=== PATIENT | male | born 1960 | race Caucasian/White ===

== ENCOUNTER 2017-01-12 18:02 | Inpatient (IN) | payer MEDICARE, OTHER ==
[~2017-01-12] VITALS: Ht 185.4 cm; Wt 91.3 kg
[~2017-01-12 18:02] MED LIST: BACLOFEN IT; CLONIDINE IT; GABA100C PO; OXYC10TA6 PO; OXYC40TA27 PO; [UNRECOGNIZED DRUG - CODE] SC
[2017-01-12] MEDS ORDERED: SODIUM CHLORIDE 0.9% 1,000 ML IV ONE (18:09)
[2017-01-12] MEDS ORDERED: SODIUM CHLORIDE 0.9% 1,000ML IVBOLUS ONE ×2 (18:30→21:00)
[2017-01-12] MEDS ORDERED: PIPERACILLIN/TAZO/PMX 3.375GM 50 ML IVPB ONE (18:30)
[2017-01-12] MEDS ORDERED: VANCOMYCIN PER PHARMACY IV ONE (18:30)
[2017-01-12 18:33] LABS: HEMATOCRIT 51.9 % (39.2-51.8); HEMOGLOBIN 17.2 g/dL (13.7-18.0); WHITE BLOOD COUNT 8.9 x10^3/uL (3.4-10)
[2017-01-12] MEDS ORDERED: PIPERACILLIN/TAZO/PMX 3.375GM 50 ML ONE (18:35)
[2017-01-12] MEDS ORDERED: ACETAMINOPHEN 500 MG TABLET ONE ×2 (18:37→18:46)
[2017-01-12 18:46] LABS: BLOOD UREA NITROGEN 9 mg/dL (7-18)
[2017-01-12 18:51] LABS: ASPARTATE AMINO TRANSFERASE 27 U/L (15-37)
[2017-01-12 18:54] LABS: IS PT STATUS REG ER OR PRE ER? YES
[2017-01-12] MEDS ORDERED: ACETAMINOPHEN 500 MG TABLET PO ONE (19:00)
[2017-01-12] MEDS ORDERED: VANCOMYCIN 1,900 MG in SODIUM CHLORIDE 0.9% 250 ML IV ONE (19:00)
[2017-01-12] MEDS ORDERED: DIAZ5TAB4 PO (19:36)
[2017-01-12] MEDS ORDERED: PRED5TAB PO (19:36)
[2017-01-12] MEDS ORDERED: OXYC60TA8 PO (19:36)
[2017-01-12] MEDS ORDERED: LEVO88TA2 PO (19:36)
[2017-01-12 20:29] LABS: PATH.CAST-FLAG NOT PRESENT; SPERM-FLAG NOT PRESENT; SRC-FLAG NOT PRESENT; XTAL-FLAG NOT PRESENT; YLC-FLAG NOT PRESENT
[2017-01-12 20:35] LABS: ABG COLLECTION SITE RIGHT RADIAL; COLLATERAL CIRCULATION TESTING NORMAL
[2017-01-12] MEDS: SODIUM CHLORIDE 0.9% 1,000 ML IV SCH (22:08)
[2017-01-12] MEDS ORDERED: ONDANSETRON 2MG/ML, 2ML IVPush PRN (22:30)
[2017-01-12] MEDS ORDERED: ACETAMINOPHEN 325 MG TABLET PO PRN (22:30)
[2017-01-12] MEDS ORDERED: BISACODYL 10 MG SUPP PR PRN (22:30)
[2017-01-12] MEDS ORDERED: VANCOMYCIN PER PHARMACY MC PRN (22:30)
[2017-01-12] MEDS ORDERED: POLYETHYLENE GLYCOL 17 GM PACKET PO PRN (22:30)
[2017-01-12 22:54] LABS: ABG COLLECTION SITE LEFT RADIAL; COLLATERAL CIRCULATION TESTING NORMAL
[2017-01-13] MEDS ORDERED: PHARMACOKINETIC MONITORING MC PRN (00:30)
[2017-01-13] MEDS: HEPARIN 5,000 UNITS/ML, 1ML SQ SCH ×3 (00:50→16:48)
[2017-01-13] MEDS: FAMOTIDINE 20 MG/2 ML IVPush SCH ×3 (00:50→19:57)
[2017-01-13] MEDS ORDERED: PIPERACILLIN/TAZO 3.375 GM in SODIUM CHLORIDE 0.9% 50 ML IV SCH (01:00)
[2017-01-13] MEDS ORDERED: PIPERACILLIN/TAZO/PMX 3.375GM 50 ML IV SCH (01:00)
[2017-01-13 01:10] VITALS: BP 96/67
[2017-01-13 01:14] VITALS: BP 129/86
[2017-01-13] MEDS ORDERED: ALBUTEROL/IPRATROPIUM 2.5MG/0.5MG, 3 ML NPPB PRN (02:00)
[2017-01-13 03:22] LABS: RAPID INFLUENZA A Negative (Negative); RAPID INFLUENZA B Negative (Negative)
[2017-01-13 04:49] LABS: ABG COLLECTION SITE LEFT RADIAL; COLLATERAL CIRCULATION TESTING NORMAL
[2017-01-13] MEDS: KETOROLAC 30 MG/1 ML IVPush PRN (04:53)
[2017-01-13 04:54] LABS: HEMATOCRIT 41.1 % (39.2-51.8); HEMOGLOBIN 13.8 g/dL (13.7-18.0); WHITE BLOOD COUNT 9.5 x10^3/uL (3.4-10)
[2017-01-13 05:02] LABS: BLOOD UREA NITROGEN 6 mg/dL (7-18)
[2017-01-13 05:05] LABS: ASPARTATE AMINO TRANSFERASE 17 U/L (15-37)
[2017-01-13] MEDS ORDERED: OxyconTIN ER 40 MG TAB.ER PO SCH (05:30)
[2017-01-13] MEDS: OXYcodone ORAL.CONC 20 MG/ML PO PRN ×2 (05:45→12:04)
[2017-01-13] MEDS: LEVOTHYROXINE 88 MCG TABLET PO SCH (07:05)
[2017-01-13] MEDS: PIPERACILLIN/TAZO 3.375 GM in SODIUM CHLORIDE 0.9% 50 ML IVPB SCH ×3 (07:05→19:58)
[2017-01-13] MEDS: PREGABALIN 150 MG CAPSULE PO SCH ×4 (07:05→19:57)
[2017-01-13] MEDS ORDERED: OxyconTIN ER 20 MG TAB.ER ONE (08:08)
[2017-01-13] MEDS: LIDOCAINE GEL 2%, 5ML TP PRN (08:22)
[2017-01-13] MEDS: SENNA/DOCUSATE TABLET PO SCH (08:22)
[2017-01-13] MEDS: OxyconTIN ER 20 MG TAB.ER PO SCH ×2 (08:46→20:47)
[2017-01-13] MEDS ORDERED: VANCOMYCIN 1,800 MG in SODIUM CHLORIDE 0.9% 250 ML IV SCH (10:00)
[2017-01-13] MEDS: SODIUM CHLORIDE 0.9% 1,000 ML IV SCH (14:00)
[2017-01-13] MEDS: VANCOMYCIN 1,800 MG in SODIUM CHLORIDE 0.9% 250 ML IV SCH (16:49)
[2017-01-13 17:59] VITALS: BP 123/84
[2017-01-13] MEDS: OXYcodone IR 5MG TABLET PO PRN (18:25)
[2017-01-13] MEDS ORDERED: OXYcodone IR 5MG TABLET PO PRN ×2 (18:30→23:30)
[2017-01-13 19:03] VITALS: BP 127/82
[2017-01-14] MEDS: HEPARIN 5,000 UNITS/ML, 1ML SQ SCH ×3 (00:21→15:43)
[2017-01-14] MEDS: OXYcodone IR 5MG TABLET PO PRN ×4 (00:22→14:03)
[2017-01-14 00:36] VITALS: BP 116/79
[2017-01-14] MEDS: PIPERACILLIN/TAZO 3.375 GM in SODIUM CHLORIDE 0.9% 50 ML IVPB SCH ×4 (01:00→20:16)
[2017-01-14] MEDS: LEVOTHYROXINE 88 MCG TABLET PO SCH (04:57)
[2017-01-14] MEDS: LIDOCAINE GEL 2%, 5ML TP PRN ×2 (04:58→12:48)
[2017-01-14] MEDS: KETOROLAC 30 MG/1 ML IVPush PRN (04:58)
[2017-01-14] MEDS: PREGABALIN 150 MG CAPSULE PO SCH ×4 (05:07→21:17)
[2017-01-14 06:55] VITALS: BP 150/95
[2017-01-14] MEDS: FAMOTIDINE 20 MG/2 ML IVPush SCH ×3 (08:56→21:17)
[2017-01-14] MEDS: SENNA/DOCUSATE TABLET PO SCH (08:56)
[2017-01-14] MEDS: OxyconTIN ER 20 MG TAB.ER PO SCH ×4 (09:00→21:36)
[2017-01-14] MEDS: VANCOMYCIN 1,800 MG in SODIUM CHLORIDE 0.9% 250 ML IV SCH (10:21)
[2017-01-14] MEDS ORDERED: OXYcodone IR 5MG TABLET PO PRN (12:30)
[2017-01-14 12:40] VITALS: BP 151/99
[2017-01-14] MEDS: DIAZEPAM ELIXIR 1 MG/ML PO PRN (17:58)
[2017-01-14 19:58] VITALS: BP 142/92
[2017-01-14 20:01] VITALS: BP 142/92
[2017-01-15] MEDS: HEPARIN 5,000 UNITS/ML, 1ML SQ SCH ×3 (00:38→16:03)
[2017-01-15] MEDS: OXYcodone IR 5MG TABLET PO PRN ×5 (00:38→23:05)
[2017-01-15] MEDS: PIPERACILLIN/TAZO 3.375 GM in SODIUM CHLORIDE 0.9% 50 ML IVPB SCH ×2 (00:38→09:13)
[2017-01-15] MEDS: LIDOCAINE GEL 2%, 5ML TP PRN ×3 (02:37→23:02)
[2017-01-15] MEDS ORDERED: OxyconTIN ER 10 MG TAB.ER ONE ×3 (03:56→10:55)
[2017-01-15] MEDS: OxyconTIN ER 20 MG TAB.ER PO SCH ×6 (04:03→22:00)
[2017-01-15] MEDS: LEVOTHYROXINE 88 MCG TABLET PO SCH (06:00)
[2017-01-15] MEDS: PREGABALIN 150 MG CAPSULE PO SCH ×4 (06:05→21:21)
[2017-01-15 06:36] VITALS: BP 152/95
[2017-01-15 06:37] VITALS: BP 152/95
[2017-01-15] MEDS: SENNA/DOCUSATE TABLET PO SCH (09:00)
[2017-01-15] MEDS: FAMOTIDINE 20 MG/2 ML IVPush SCH ×2 (09:14→21:21)
[2017-01-15] MEDS ORDERED: OxyconTIN ER 40 MG TAB.ER ONE (10:56)
[2017-01-15 13:11] VITALS: BP 137/87
[2017-01-15 19:03] VITALS: BP 161/90
[2017-01-15] MEDS: CEFDINIR 300 MG CAPSULE PO SCH (21:21)
[2017-01-15] MEDS: DOXYCYCLINE 100MG TABLET PO SCH (21:21)
[2017-01-15] MEDS: DIAZEPAM ELIXIR 1 MG/ML PO PRN (23:06)
[2017-01-16 00:16] VITALS: BP 155/96
[2017-01-16] MEDS: HEPARIN 5,000 UNITS/ML, 1ML SQ SCH ×2 (00:20→08:00)
[2017-01-16] MEDS ORDERED: OxyconTIN ER 10 MG TAB.ER ONE (04:01)
[2017-01-16] MEDS: OxyconTIN ER 20 MG TAB.ER PO SCH ×3 (04:04→10:03)
[2017-01-16] MEDS: PREGABALIN 150 MG CAPSULE PO SCH ×2 (05:25→11:00)
[2017-01-16] MEDS: LEVOTHYROXINE 88 MCG TABLET PO SCH (05:26)
[2017-01-16] MEDS: OXYcodone IR 5MG TABLET PO PRN (05:26)
[2017-01-16 05:30] LABS: HEMATOCRIT 47.3 % (39.2-51.8); HEMOGLOBIN 15.8 g/dL (13.7-18.0); WHITE BLOOD COUNT 4.8 x10^3/uL (3.4-10)
[2017-01-16 05:40] LABS: BLOOD UREA NITROGEN 5 mg/dL (7-18)
[2017-01-16 07:15] VITALS: BP 146/89
[2017-01-16] MEDS: SENNA/DOCUSATE TABLET PO SCH (09:00)
[2017-01-16] MEDS: FAMOTIDINE 20 MG/2 ML IVPush SCH (09:00)
[2017-01-16] MEDS ORDERED: DOXY100T PO (09:39)
[2017-01-16] MEDS ORDERED: CEFD300C37 PO (09:39)
[2017-01-16] MEDS: CEFDINIR 300 MG CAPSULE PO SCH (10:03)
[2017-01-16] MEDS: DOXYCYCLINE 100MG TABLET PO SCH (10:03)
[2017-01-16] MEDS ORDERED: PNEUMOCOCCAL 23 VACCINE IM-VACC ONE (10:30)
== END 2017-01-16 13:45 | disposition home or self-care (01) | DRG 871 ==
LOC: ED 20:57 → EDIP 22:37 → CCU 01-13 00:15 → 4EST 01-13 17:50
PROVIDERS: ADMIT Hospitalist; ATTEND Hospitalist
PROC: 0T9B70Z Drainage of Bladder with Drainage Device, Via Natural or Artificial Opening (ICD-10-PCS; principal; 2017-01-12)
DX: A41.9 Sepsis, unspecified organism (principal); J15.9 Unspecified bacterial pneumonia; J96.01 Acute respiratory failure with hypoxia; J96.02 Acute respiratory failure with hypercapnia; D89.9 Disorder involving the immune mechanism, unspecified; F11.20 Opioid dependence, uncomplicated; G35 Multiple sclerosis; J44.0 Chronic obstructive pulmonary disease with (acute) lower respiratory infection; G89.29 Other chronic pain; R65.20 Severe sepsis without septic shock; Z87.891 Personal history of nicotine dependence
CPT/HCPCS: 36415; 36600; 71010; 80048; 80053; 81001; 82803; 83605; 84484; 85025; 85610; 85730; 87040; 87081; 87400; 90732; 93005; 96365; 96367; J1644; J1885; J2543; J3370; J7030; J7050; J7512; S0028

== ENCOUNTER 2020-03-23 10:18 | Outpatient (CLI) | payer MEDICARE, BC ==
[~2020-03-23 10:18] MED LIST changes: +CEFD300C37 PO; +DIAZ5TAB4 PO; +DOXY100T PO; +LEVO88TA2 PO; +OXYC60TA8 PO; +PRED5TAB PO
== END 2020-03-23 23:59 | disposition home or self-care (01) ==
LOC: WOUND 10:18
PROVIDERS: ATTEND Internal Medicine
DX: L89.313 Pressure ulcer of right buttock, stage 3 (principal); L89.43 Pressure ulcer of contiguous site of back, buttock and hip, stage 3; E03.9 Hypothyroidism, unspecified; I10 Essential (primary) hypertension; J44.9 Chronic obstructive pulmonary disease, unspecified; G35 Multiple sclerosis; M48.061 Spinal stenosis, lumbar region without neurogenic claudication; G89.29 Other chronic pain; F41.9 Anxiety disorder, unspecified; F11.20 Opioid dependence, uncomplicated; Z87.891 Personal history of nicotine dependence
CPT/HCPCS: 97597; G0463

== ENCOUNTER 2020-05-21 08:29 | Outpatient (CLI) | payer MEDICARE, BC | END 2020-05-21 23:59 | disposition home or self-care (01) | LOC: WOUND 08:29 | PROVIDERS: ATTEND Internal Medicine | DX: L89.313 Pressure ulcer of right buttock, stage 3 (principal); L89.43 Pressure ulcer of contiguous site of back, buttock and hip, stage 3; E03.9 Hypothyroidism, unspecified; I10 Essential (primary) hypertension; J44.9 Chronic obstructive pulmonary disease, unspecified; G35 Multiple sclerosis; M48.061 Spinal stenosis, lumbar region without neurogenic claudication; G89.29 Other chronic pain; F41.9 Anxiety disorder, unspecified; F11.20 Opioid dependence, uncomplicated; Z87.891 Personal history of nicotine dependence | CPT/HCPCS: 97597 ==

== ENCOUNTER → 2020-06-22 | Outpatient (CLI) | payer MEDICARE, BC | END | disposition home or self-care (01) | LOC: WOUND 12:55 | PROVIDERS: ATTEND Internal Medicine | DX: L89.313 Pressure ulcer of right buttock, stage 3 (principal); L89.43 Pressure ulcer of contiguous site of back, buttock and hip, stage 3; E03.9 Hypothyroidism, unspecified; I10 Essential (primary) hypertension; J44.9 Chronic obstructive pulmonary disease, unspecified; G35 Multiple sclerosis; M48.061 Spinal stenosis, lumbar region without neurogenic claudication; G89.29 Other chronic pain; F41.9 Anxiety disorder, unspecified; F11.20 Opioid dependence, uncomplicated; Z87.891 Personal history of nicotine dependence | CPT/HCPCS: 97597 ==